=== PATIENT | female | born 1965 | race Caucasian/White ===

== ENCOUNTER 2019-01-07 11:22 | Day surgery (SDC) | payer OTHER ==
[~2019-01-07] VITALS: Ht 162.6 cm; Wt 72.1 kg
[~2019-01-07 11:22] MED LIST: BACITRACIN PWD 50,000 UNITS VIAL As Ordered ONE; BUPIVACAINE HCL 0.5% 30 ML VIAL As Ordered ONE; CLON0.5T8 PO; CYMB60CA3 PO; ESTR125TA PO; LIDOCAINE 2% INJ 100 MG/5 ML SDV (FOR ANES.) As Ordered ONE; LIDOCAINE 2% MDV 20 ML VIAL As Ordered ONE; LR 1,000 ML IV ONE; MEDR1TAB2 PO; MELO15TA28 PO; MIDAZOLAM INJ 2 MG/2 ML VIAL (J2250) As Ordered ONE; NEOSPORIN GU IRRIG 20 ML VIAL As Ordered ONE; ONDANSETRON 4MG/2ML VIAL (J2405) As Ordered ONE; PROPOFOL 500 MG/50 ML VIAL As Ordered ONE; SPIR50TA4 PO; TIZA2CAP PO; dexameTHASONE 4 MG/ML 1ML VIAL (J1100) As Ordered ONE; fentaNYL 100 MCG/2 ML INJECTION (J3010) As Ordered ONE
[2019-01-07] MEDS ORDERED: ePHEDrine SULFATE 25 MG/5 ML(5MG/ML) SYRINGE As Ordered ONE (14:01)
[2019-01-07] MEDS ORDERED: PHENYLephrine HCL 500 MCG/5 ML (100MCG/ML) SYRINGE (J2370) As Ordered ONE ×2 (14:01→14:36)
[2019-01-07] MEDS ORDERED: ONDANSETRON 4MG/2ML VIAL (J2405) IV PRN (15:15)
[2019-01-07] MEDS ORDERED: fentaNYL 100 MCG/2 ML INJECTION (J3010) IV PRN (15:15)
[2019-01-07] MEDS ORDERED: METOCLOPRAMIDE INJ 10MG/2ML VIAL (J2765) IV PRN (15:15)
[2019-01-07] MEDS ORDERED: PERCOCET 5MG/325MG TAB PO PRN (15:15)
[2019-01-07] MEDS ORDERED: LR 1,000 ML IV SCH (15:15)
[2019-01-07 16:00] VITALS: BP 127/79
--- NOTE | 2019-01-07 16:27 | REP ---
Portable right foot three views History: Bunionectomy A cast is present. The patient is status post arthrodesis of of the second digit and osteotomy of the heads of the first and fifth metatarsals. Metal hardware is present. There is no acute fracture or dislocation. There is narrowing of the first metatarsal-phalangeal joint space. Impression: The patient is status post arthrodesis of the second digit and osteotomy of the first and fifth metatarsals. There is anatomic alignment. Electronically Signed by Bao Gomez MD 01/07/2019 04:18 P
--- NOTE | 2019-01-09 12:13 | RO ---
DATE OF PROCEDURE: 01/07/2019 PREPROCEDURE DIAGNOSES: 1. Hallux valgus deformity, right foot. 2. Tailors bunion deformity, right foot. 3. Hammertoe deformity, second toe, right foot. POSTPROCEDURE DIAGNOSES: 1. Hallux valgus deformity, right foot. 2. Tailors bunion deformity, right foot. 3. Hammertoe deformity, second toe, right foot. PROCEDURE: 1. Mitch bunionectomy and internal screw fixation, 3.0 mm x 22 mm times one of the right foot. 2. Tailor's bunionectomy with distal V osteotomy and internal screw fixation 2.5 mm x 14 mm times one of the right foot. 3. Proximal interphalangeal joint arthroplasty second toe with external wire fixation, 0.045 times one, second toe right foot. 4. Second metatarsophalangeal joint capsulotomy, right foot. SURGEON: Dr. Jesus Brown DPM REAL ESTATE INTERN: None. ANESTHESIA: Local monitored anesthesia care (MAC) IRRIGATION: Dilute bacitracin, neomycin, and polymyxin B solution. HEMOSTASIS: Ankle pneumatic tourniquet at 200 mmHg for 65 minutes. DESCRIPTION OF PROCEDURE: On 01/07/2019, this 53-year-old white female was taken from his hospital room to the operating room and placed on the operating table in supine position. Following the induction if intravenous (IV) sedation and local and regional anesthesia, the right lower extremity was prepped and draped in the usual aseptic manner. Attention was directed to the patient's right foot and there was noted to be a hallux valgus deformity. At this time, the following procedure was performed: MITCH BUNIONECTOMY AND INTERNAL SCREW FIXATION, 3.0 MM X 22 MM TIMES ONE, RIGHT FOOT. Attention was directed to the patients right foot. There was noted to be a hallux valgus deformity. At this time, a 6 cm incision was placed over the first metatarsophalangeal joint. The incision was deepened through subcutaneous tissue, and all coursing venous tributaries were identified, underscored, clamped, cut, ligated, and electrocoagulated as necessary. A linear capsulotomy was then performed in the same plane as the original skin incision. The capsular and periosteal structures were then dissected free in one continuous layer, dorsally, medially, and laterally, thus creating a capsular-periosteal type envelope. This delivered into view the hypertrophied medial eminence of the first metatarsal, which was osteotomized from distal to proximal through and through and extirpated from the wound in toto. Attention was directed to the first intermetatarsal space, where the dissection was carried down to the level of the conjoined tendon which was sharply released. Attention was then directed to the medial surface of the first metatarsal, where a V-shaped osteotomy was performed with a long plantar and short dorsal wing. Upon creation of this osteotomy, a capital fragment was transposed 40% of the width of the shaft of the first metatarsal and fixated with a 3.0 x 22 mm headless compression screw. The osteotomy was noted to be stable in all three cardinal planes. The redundant cortical spike was then osteotomized from dorsal to plantar through and through and extirpated from the wound in toto. The medial surface was rasped to a smooth and even contour. The wound was flushed with copious amounts of dilute bacitracin, neomycin, and polymyxin B solution. Attention was directed toward closure, where the capsular structures were coapted and maintained using #2-0 Vicryl in a simple interrupted type fashion. Subcutaneous tissues were coapted and maintained using #4-0 Monocryl in a simple interrupted type fashion. Skin incisions were coapted and maintained using #5-0 Monocryl in a continuous subcuticular type fashion. Attention was then directed to the fifth metatarsophalangeal joint where the following procedure was performed: TAILORS BUNIONECTOMY WITH DISTAL V-OSTEOTOMY AND INTERNAL SCREW FIXATION, 2.5 MM X 14 MM, TIMES ONE, RIGHT FOOT: Attention was directed to the lateral surface of the patients right foot. There is noted to be a Tailors bunion deformity. At this time, a 5 cm lateral incision was placed over the fifth metatarsophalangeal joint. The incision was deepened through subcutaneous tissues and all coursing venous tributaries were identified, underscored, clamped, cut, ligated, and electrocoagulated as necessary. A linear capsulotomy was performed in the same plane as the original skin incision. The capsular and periosteal structures were then dissected free in one continuous layer, dorsally and plantarly. The hypertrophied lateral eminence was visualized and this was osteotomized from distal to proximal with sagittal saw and this was extirpated from the wound. A V-shaped osteotomy was performed in the fifth metatarsal neck and the distal metaphysis with a long plantar and short dorsal wing. Upon creation of this osteotomy, a capital fragment was transposed 30% of the width of the shaft of the first metatarsal and fixated with an 2.5 x 14 mm headless compression screw. The osteotomy was noted to be stable in all three cardinal planes. The redundant cortical spike was then osteotomized from dorsal to plantar through and through and extirpated from the wound. The wound was flushed with copious amounts of dilute bacitracin, neomycin, and polymyxin B solution. Attention was directed toward closure, where the capsular structures were coapted and maintained using #2-0 Monocryl in a simple interrupted type fashion. Subcutaneous tissues were coapted and maintained using #4-0 Monocryl in a simple interrupted type fashion. Skin incisions were coapted and maintained using #5-0 Monocryl in a continuous subcuticular type fashion. Attention was then directed to the second toe where the following procedure was performed: PROXIMAL INTERPHALANGEAL JOINT ARTHROPLASTY WITH EXTERNAL WIRE FIXATION 0.045 TIMES ONE SECOND TOE, RIGHT FOOT: Attention was directed to the patients second toe where there was noted to be a hammertoe deformity. At this time, a 3 cm incision was placed over the proximal interphalangeal joint of the second toe. The incision was deepened through the subcutaneous tissues and all coursing venous tributaries were identified, underscored, clamped, cut, ligated, and electrocoagulated as necessary. The extensor tendon was then freed dorsally. Medial and lateral collateral ligaments were sharply dissected free from the proximal interphalangeal joint. Utilizing a power saw, an osteotomy was performed to the anatomical neck of the proximal phalanx from dorsal to plantar, medial to lateral, through and through and extirpated from the wound in toto. The base of the middle phalanx was similarly osteotomized from dorsal to plantar through and through. A 0.045 Maribell wire was then driven through the middle and distal phalanx and retrograded into the proximal phalanx utilizing C-Arm control. The wire was then bent and cut and a protective ball was placed on the distal end of the pin. There was still noted to be a dorsal contracture of the second metatarsophalangeal joint and therefore the following procedure was performed: SECOND METATARSOPHALANGEAL JOINT DORSAL CAPSULOTOMY: Attention was directed to the patient's metatarsophalangeal joint where there was noted to be a dorsal contracture. At this time, an incision was placed through the metatarsophalangeal joint capsule releasing the dorsal contracture and straightening the second toe. The wound was flushed with copious amounts of dilute bacitracin, neomycin, and polymyxin B solution. Attention was directed towards closure where the incision was coapted and maintained utilizing #4-0 Prolene in a simple interrupted and horizontal mattress type fashion. Following the completion of the surgical procedure, 4 mg of dexamethasone sodium phosphate was instilled proximal to the surgical site. Attention was directed toward bandaging, where a sterile compression bandage was applied, consisting of Adaptic, 4 x 4s, 4 x 4 splints, Ericka, Kerlix, and Coban. Ankle pneumatic tourniquet was rapidly deflated. Instantaneous capillary refill time was noted in digits 1 through 5 of the patients right foot. The patient, having apparently tolerated the surgical procedure well, was taken from the operating room to the recovery room, vital signs stable, patient afebrile. Further monitoring by the anesthesia department. Postoperative instructions given upon discharge.
== END 2019-01-07 16:09 | disposition home or self-care (01) ==
LOC: M SDC 11:22
PROVIDERS: ATTEND Podiatrist
DX: M21.621 Bunionette of right foot (principal); M20.11 Hallux valgus (acquired), right foot; M20.41 Other hammer toe(s) (acquired), right foot; F41.9 Anxiety disorder, unspecified; F17.210 Nicotine dependence, cigarettes, uncomplicated; Z91.040 Latex allergy status; Z88.1 Allergy status to other antibiotic agents; Z88.2 Allergy status to sulfonamides; Z79.899 Other long term (current) drug therapy
CPT/HCPCS: 28110; 28270; 28285; 28296; 73630; 88300; C1713; J0690; J1100; J2250; J2370; J2405; J3010

== ENCOUNTER → 2019-03-21 | Outpatient (REF) | payer OTHER ==
[~2019-03-21] MED LIST changes: -BACITRACIN PWD 50,000 UNITS VIAL As Ordered ONE; -BUPIVACAINE HCL 0.5% 30 ML VIAL As Ordered ONE; -LIDOCAINE 2% INJ 100 MG/5 ML SDV (FOR ANES.) As Ordered ONE; -LIDOCAINE 2% MDV 20 ML VIAL As Ordered ONE; -LR 1,000 ML IV ONE; -MIDAZOLAM INJ 2 MG/2 ML VIAL (J2250) As Ordered ONE; -NEOSPORIN GU IRRIG 20 ML VIAL As Ordered ONE; -ONDANSETRON 4MG/2ML VIAL (J2405) As Ordered ONE; -PROPOFOL 500 MG/50 ML VIAL As Ordered ONE; -dexameTHASONE 4 MG/ML 1ML VIAL (J1100) As Ordered ONE; -fentaNYL 100 MCG/2 ML INJECTION (J3010) As Ordered ONE
== END ==
LOC: M LAB LCGH 13:35
DX: Z12.4 Encounter for screening for malignant neoplasm of cervix (principal)

== ENCOUNTER → 2019-03-30 | Outpatient (REF) | payer OTHER | LOC: M LAB LCGH 12:28 | DX: N93.9 Abnormal uterine and vaginal bleeding, unspecified (principal) ==

== ENCOUNTER → 2022-08-01 | Outpatient (CLI) | payer OTHER ==
[~2022-08-01] MED LIST changes: +CLON0.5T2 PO; -CLON0.5T8 PO; -CYMB60CA3 PO; +CYMB60CA4 PO
== END ==
LOC: M RAD 14:37
PROVIDERS: ATTEND Family Medicine
DX: J43.9 Emphysema, unspecified (principal); R05.3 Chronic cough; Z72.0 Tobacco use; R06.02 Shortness of breath

== ENCOUNTER → 2024-05-11 | Outpatient (CLI) | payer OTHER | LOC: M RAD 14:33 | PROVIDERS: ATTEND Nurse Practitioner Adult Health | DX: Z87.891 Personal history of nicotine dependence (principal) ==

== ENCOUNTER → 2025-07-20 | Outpatient (CLI) | payer OTHER | LOC: M RAD 13:37 | PROVIDERS: ATTEND Nurse Practitioner Adult Health | DX: Z87.891 Personal history of nicotine dependence (principal) ==